=== PATIENT | female | born 1990 | race African-American/Black ===

== ENCOUNTER 2024-11-29 00:42 | Emergency (ER) | payer OTHER ==
[2024-11-29] MEDS ORDERED: HYDROMORPHONE HCL 1 MG/ML INJ ONE ×3 (01:07→03:00)
[2024-11-29] MEDS ORDERED: NA CHLORIDE 0.9% 1,000 ML ONE (01:08)
[2024-11-29] MEDS ORDERED: KETOROLAC 30 MG/ML INJ ONE (01:08)
[2024-11-29 01:49] LABS: Absolute Basophils 0.2 K/uL (0-0.5); Absolute Eosinophils 1.2 K/uL (0-0.5); Absolute Lymphocytes (CBC) 3.8 K/uL (0.7-4.9); Absolute Monocytes 2.4 K/uL (0.1-1.3); Absolute Neutrophil 12.4 K/uL (1.8-8.0); Basophils % 1.1 % (0-1.3); Eosinophils % 5.9 % (0-4.4); Hematocrit 19.7 % (36.0-45.0); Hemoglobin 6.8 g/dL (12.0-15.0); Lymphocytes % 18.9 % (15.3-44.8); MCH 34.1 pg (27.0-35.0); MCHC 34.6 g/dL (32.0-36.0); MCV 98.5 fL (80-100); MPV 9.4 fL (7.6-11.3); Monocytes % 12.1 % (3.3-12.3); Nucleated Red Blood Cells % 19.9 % (0-0); Percent Reticulocyte Count 16.11 % (0.4-2.05); Platelets 268 thou/uL (152-406); Red Cell Distribution Width 27.3 % (12.1-15.2)
[2024-11-29] MEDS ORDERED: DIPHENHYDRAMINE 25 MG TAB/CAP ONE (01:50)
[2024-11-29 01:53] LABS: Albumin 4.6 g/dL (3.4-5.0); Albumin/Globulin Ratio 1.3 (1.1-1.8); Anion Gap 8.5 mEq/L (5.0-15.0); Bilirubin Total 12.4 mg/dL (0.2-1.0); Globulin 3.6 g/dL (2.3-3.5); Potassium 4.5 mEq/L (3.5-5.1); Protein, Total 8.2 g/dL (6.4-8.2)
[2024-11-29] MEDS ORDERED: CEFTRIAXONE 1000 MG/VIAL ONE (03:00)
[2024-11-29 03:21] LABS: Band Neutrophils 1 % (0-1); Differential Total Cells Count 100; Eosinophils 4 % (0-3); Lymphocytes 21 % (15-42); Monocytes 8 % (0-10); Segmented Neutrophils 66 % (40-80)
[2024-11-29 03:22] LABS: Nucleated Red Blood Cells 29 /100WBC
[2024-11-29 03:25] LABS: Anisocytosis 3+; Blood Morphology Comment NOTED (NOT SEEN); Platelet Estimate ADEQ
--- NOTE | 2024-11-29 03:25 | EDPHYS ---
Physician Documentation [facility] Name: Adriane Sutherland Age: 34 yrs Sex: Female : 1990 Arrival Date: 11/29/2024 Time: 00:42 Bed 2 Private MD: ED Physician Serge Calle HPI: 11/29 01:04 This 34 yrs old Black Female presents to ER via Wheelchair with complaints of SICKLE rt PAIN. 05:20 Patient with history of sickle cell SS disease presents to the ED with a generalized rt body pain consistent with vaso-occlusive crisis. Patient reports that her jaundice is chronic for her. States that her baseline hemoglobin is at about 7 and her bilirubin is baseline is about 12. Denies fever, chills, difficulty breathing. Denies other acute complaints, symptoms are moderate in severity, no other aggravating alleviating factors.. Historical: - Allergies: 02:32 Compazine; br2 - PMHx: 02:17 SICKLE CELL; jj7 - PSHx: 02:17 HEART SX; jj7 - Immunization history:: Adult Immunizations not up to date. - Infectious Disease History:: Denies. - Family history:: not pertinent. - Social history:: Smoking status: Patient denies any tobacco usage or history of. Patient/guardian denies using alcohol, street drugs, IV drugs. ROS: 05:20 Cardiovascular: Negative for chest pain, palpitations, and edema, Respiratory: Negative rt for shortness of breath, cough, wheezing, and pleuritic chest pain, Abdomen/GI: Negative for abdominal pain, nausea, vomiting, diarrhea, and constipation, MS/Extremity: Negative for injury and deformity, Skin: Negative for injury, rash, and discoloration, 05:20 Constitutional: Positive for body aches, Negative for fever, Exam: 05:20 Constitutional: This is a well developed, well nourished patient who is awake, alert, rt and in no acute distress. Chest/axilla: Normal chest wall appearance and motion. Nontender with no deformity. No lesions are appreciated. Cardiovascular: Regular rate and rhythm with a normal S1 and S2. No gallops, murmurs, or rubs. Normal PMI, no JVD. No pulse deficits. Respiratory: Lungs have equal breath sounds bilaterally, clear to auscultation and percussion. No rales, rhonchi or wheezes noted. No increased work of breathing, no retractions or nasal flaring. Abdomen/GI: Soft, non-tender, with normal bowel sounds. No distension or tympany. No guarding or rebound. No evidence of tenderness throughout. Skin: Warm, dry with normal turgor. Normal color with no rashes, no lesions, and no evidence of cellulitis. Neuro: Awake and alert, GCS 15, oriented to person, place, time, and situation. Cranial nerves II-XII grossly intact. Motor strength 5/5 in all extremities. Sensory grossly intact. Cerebellar exam normal. Normal gait. 05:20 Eyes: Jaundice noted. Vital Signs: 01:01 BP 164 / 88; Pulse 98; Resp 18; Temp 98.1; Pulse Ox 92% on R/A; Weight 65.77 kg; Height br2 5 ft. 6 in. ; Pain 10/10; 02:12 BP 127 / 66; Pulse 78; Resp 16; Pulse Ox 100% ; jj7 02:45 BP 124 / 85; Pulse 79; Resp 17 S; Pulse Ox 98% on R/A; ha1 03:30 BP 130 / 56; Pulse 76; Resp 17 S; Temp 97.2; Pulse Ox 99% on R/A; ha1 01:01 Body Mass Index 23.40 (65.77 kg, 167.64 cm) br2 01:01 Pain Scale: Adult br2 MDM: 00:57 Medical Screening Exam initiated rt 05:20 Differential Diagnosis Vaso-occlusive crisis, sepsis. Data reviewed: vital signs, rt nurses notes, lab test result(s), radiologic studies. Consideration of Admission/Observation Escalation of care including admission/observation considered. Given leukocytosis, unclear infectious etiology, I discussed admission with the patient. 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 States that her pain is well-controlled with pain medications. 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 The patient has decision-making capacity. She was instructed to return to the ER at any time if she develops worsening symptoms or if she changes her mind.. I considered the following discharge prescriptions or medication management in the emergency department Medications were administered in the Emergency Department. See MAR. Independent interpretation of the following test(s) in the Emergency Department X-Ray: My interpretation is No infiltrate seen on interpretation of x-ray images. Care significantly affected by the following chronic conditions: Sickle cell disease. Counseling: I had a detailed discussion with the patient and/or guardian regarding the historical points, exam findings, and any diagnostic results supporting the discharge/admit diagnosis, lab results, radiology results, the need for outpatient follow up, to return to the emergency department if symptoms worsen or persist or if there are any questions or concerns that arise at home. Response to treatment: the patient's symptoms have markedly improved after treatment. 11/29 00:57 Order name: CBC with Diff; Complete Time: 03:34 rt 11/29 00:57 Order name: CMP; Complete Time: 02:04 rt 11/29 00:57 Order name: Retic Count; Complete Time: 03:34 rt 11/29 00:57 Order name: LDH; Complete Time: 02:04 rt 11/29 02:24 Order name: Blood Culture Adult (2) rt 11/29 03:24 Order name: Manual Differential; Complete Time: 03:34 EDMS 11/29 00:57 Order name: Chest Single View XRAY rt Administered Medications: 01:10 Drug: NS 0.9% IV 1000 ml IV at 1000 ml once; to be given as a bolus over 60 minutes ha1 Route: IV; Rate: 1000 ml; Site: right antecubital; 03:35 Follow up: IV Status: Completed infusion jj7 01:12 Drug: Ketorolac IVP 30 mg IVP once Route: IVP; Site: right antecubital; ha1 02:00 Follow up: Response: Pain is decreased jj7 01:15 Drug: HYDROmorphone IVP 1 mg IVP once Route: IVP; Site: right antecubital; ha1 01:59 Follow up: Response: Pain is decreased jj7 01:52 Drug: diphenhydrAMINE PO 50 mg PO once Route: PO; jj7 02:00 Follow up: Response: No adverse reaction ha1 03:43 Follow up: Response: No adverse reaction; Marked relief of symptoms jj7 02:12 Drug: HYDROmorphone IVP 1 mg IVP once Route: IVP; Site: right antecubital; jj7 02:30 Follow up: Response: No adverse reaction; Marked relief of symptoms; Pain is decreased; ha1 RASS: Alert and Calm (0) 03:10 Drug: Rocephin IV 2 grams IV at calculated rate once; Given slow IV push per pharmarcy jj7 instructions Route: IV; Rate: calculated rate; Site: right antecubital; 03:15 Follow up: IV Status: Completed infusion jj7 03:10 Drug: HYDROmorphone IVP 1 mg IVP once Route: IVP; Site: right antecubital; jj7 03:43 Follow up: Response: No adverse reaction; Marked relief of symptoms; Pain is decreased; ha1 RASS: Alert and Calm (0) Disposition Summary: 11/29/24 03:25 Discharge Ordered Notes: Location: Home rt Problem: an acute exacerbation rt Symptoms: have improved rt Condition: Fair rt Diagnosis - Other sickle-cell disorders with crisis, unspecified rt Followup: rt - With: Private Physician - When: 2 - 3 days - Reason: Followup: rt - With: Emergency Department - When: As needed - Reason: Worsening of condition Discharge Instructions: - Discharge Summary Sheet rt - Sickle Cell Anemia, Adult rt Forms: - Medication Reconciliation Form rt - Antibiotic Education rt - Prescription Opioid Use rt - Patient Portal Instructions rt - Leadership Thank You Letter rt Prescriptions: - cefdinir 300 mg Oral capsule - take 1 capsule ORAL route 2 times per day; 14 capsule; Refills: 0, Product rt Selection Permitted Signatures: Dispatcher [employer] Haily Maria RN RN ha1 Trisha Geronimo RN RN jj7 Serge Calle MD MD rt Cesilia Talbert RN RN br2 Corrections: (The following items were deleted from the chart) 02:32 02:17 Allergies: No Known Allergies; jj7 br2
--- NOTE | 2024-11-29 03:25 | ER ---
Nurse's Notes [facility] Name: Adriane Sutherland Age: 34 yrs Sex: Female : 1990 Arrival Date: 11/29/2024 Time: 00:42 Bed 2 Private MD: Diagnosis: Other sickle-cell disorders with crisis, unspecified Presentation: 11/29 01:01 Chief complaint: Patient states: PT HAS SICKLE CELL AND STATES SHE BEGAN HAVING PAIN br2 ALL OVER APPROX 2 HRS PRIOR TO ARRIVAL. C/O CP AND SOB. Coronavirus screen: Client denies travel out of the [place] in the last 14 days. Ebola Screen: Patient denies exposure to infectious person. Initial Sepsis Screen: Does the patient meet any 2 criteria? No. Patient's initial sepsis screen is negative. Does the patient have a suspected source of infection? No. Patient's initial sepsis screen is negative. Risk Assessment: Do you want to hurt yourself or someone else? Patient reports no desire to harm self or others. Onset of symptoms was November 28, 2024 at 23:00. 01:01 Method Of Arrival: Wheelchair br2 01:01 Acuity: ISA 3 br2 Historical: - Allergies: 02:32 Compazine; br2 - PMHx: 02:17 SICKLE CELL; jj7 - PSHx: 02:17 HEART SX; jj7 - Immunization history:: Adult Immunizations not up to date. - Infectious Disease History:: Denies. - Family history:: not pertinent. - Social history:: Smoking status: Patient denies any tobacco usage or history of. Patient/guardian denies using alcohol, street drugs, IV drugs. Screenin:05 [facility] ED Fall Risk Assessment (Adult) History of falling in the last 3 months, jj7 including since admission No falls in past 3 months (0 pts) Confusion or Disorientation No (0 pts) Intoxicated or Sedated No (0 pts) Impaired Gait No (0 pts) Mobility Assist Device Used No (0 pt) Altered Elimination No (0 pt) Score/Fall Risk Level 0 - 2 = Low Risk Oriented to surroundings, Maintained a safe environment, Educated pt \T\ family on fall prevention, incl call for assistance when getting out of bed, Assessed \T\ reinforced patient's understanding of fall precautions. Abuse screen: Denies threats or abuse. Nutritional screening: No deficits noted. Tuberculosis screening: No symptoms or risk factors identified. Assessment: 01:01 General: Appears in no apparent distress. uncomfortable, Behavior is calm, cooperative, jj7 appropriate for age. Pain: Complains of pain in ALL OVER BODY Pain currently is 10 out of 10 on a pain scale. Musculoskeletal: Reports GENERALIZED PAIN ALL OVER. 02:20 Reassessment: Patient and/or family updated on plan of care and expected duration. Pain ha1 level reassessed. Patient is alert, oriented x 3, equal unlabored respirations, skin warm/dry/pink. 03:39 Reassessment: Patient and/or family updated on plan of care and expected duration. Pain ha1 level reassessed. Patient is alert, oriented x 3, equal unlabored respirations, skin warm/dry/pink. PAIN 4/10 Patient states feeling better. Patient states symptoms have improved. Vital Signs: 01:01 BP 164 / 88; Pulse 98; Resp 18; Temp 98.1; Pulse Ox 92% on R/A; Weight 65.77 kg; Height br2 5 ft. 6 in. ; Pain 10/10; 02:12 BP 127 / 66; Pulse 78; Resp 16; Pulse Ox 100% ; jj7 02:45 BP 124 / 85; Pulse 79; Resp 17 S; Pulse Ox 98% on R/A; ha1 03:30 BP 130 / 56; Pulse 76; Resp 17 S; Temp 97.2; Pulse Ox 99% on R/A; ha1 01:01 Body Mass Index 23.40 (65.77 kg, 167.64 cm) br2 01:01 Pain Scale: Adult br2 ED Course: 11/28 00:57 Arm band placed on right wrist. ha1 11/29 00:52 Patient arrived in ED. gm2 00:56 Serge Calle MD is Attending Physician. rt 01:03 Triage completed. br2 01:05 Patient has correct armband on for positive identification. Bed in low position. Call jj7 light in reach. Side rails up X 1. Adult w/ patient. Provided Education on: USE OF CALL STAPLETON. Warm blanket given. 01:05 No provider procedures requiring assistance completed. Inserted saline lock: 20 gauge jj7 in right antecubital area, using aseptic technique. Blood collected. Flushed with 10 mL NS. 01:39 Chest Single View XRAY In Process Unspecified. EDMS 01:52 Trisha Geronimo, COLTON is Primary Nurse. j7 02:12 Diet: Patient given snack. Patient given juice. Tolerated well. jj7 02:43 First set of blood cultures drawn by me. sa1 02:55 Second set of blood cultures drawn by me. jj7 03:40 IV discontinued, intact, bleeding controlled, No redness/swelling at site. Pressure ha1 dressing applied. Administered Medications: 01:10 Drug: NS 0.9% IV 1000 ml IV at 1000 ml once; to be given as a bolus over 60 minutes ha1 Route: IV; Rate: 1000 ml; Site: right antecubital; 03:35 Follow up: IV Status: Completed infusion jj7 01:12 Drug: Ketorolac IVP 30 mg IVP once Route: IVP; Site: right antecubital; ha1 02:00 Follow up: Response: Pain is decreased jj7 01:15 Drug: HYDROmorphone IVP 1 mg IVP once Route: IVP; Site: right antecubital; ha1 01:59 Follow up: Response: Pain is decreased jj7 01:52 Drug: diphenhydrAMINE PO 50 mg PO once Route: PO; jj7 02:00 Follow up: Response: No adverse reaction ha1 03:43 Follow up: Response: No adverse reaction; Marked relief of symptoms jj7 02:12 Drug: HYDROmorphone IVP 1 mg IVP once Route: IVP; Site: right antecubital; jj7 02:30 Follow up: Response: No adverse reaction; Marked relief of symptoms; Pain is decreased; ha1 RASS: Alert and Calm (0) 03:10 Drug: Rocephin IV 2 grams IV at calculated rate once; Given slow IV push per pharmarcy jj7 instructions Route: IV; Rate: calculated rate; Site: right antecubital; 03:15 Follow up: IV Status: Completed infusion j7 03:10 Drug: HYDROmorphone IVP 1 mg IVP once Route: IVP; Site: right antecubital; jj7 03:43 Follow up: Response: No adverse reaction; Marked relief of symptoms; Pain is decreased; ha1 RASS: Alert and Calm (0) Medication: 02:17 VIS not applicable for this client. jj7 Outcome: 03:25 Discharge ordered by . rt 03:39 Discharged to home via wheelchair, with family, ha1 03:39 Condition: stable 03:39 Discharge instructions given to patient, Instructed on discharge instructions, follow up and referral plans. medication usage, Demonstrated understanding of instructions, follow-up care, medications, Prescriptions given X 1, 03:44 Patient left the ED. ha1 Signatures: Dispatcher [employer] EDMS Haily Dalton RN RN ha1 Trisha Geronimo RN RN jj7 Serge Calle MD MD rt Ivelisse Ravi 2 Sultan Moshe sa1 Cesilia Talbert RN RN br2 Corrections: (The following items were deleted from the chart) 01:15 00:12 Ketorolac IVP 30 mg IVP in right antecubital ha1 ha1 02:32 02:17 Allergies: No Known Allergies; jj7 br2 03:22 03:21 BP 120 / 92; Pulse 90bpm; Resp 17bpm; Pulse Ox 99%; jj7 jj7 03:44 03:39 Discharged to home ambulatory, with family, ha1 ha1
[2024-11-29 03:26] LABS: Hypochromasia 1+; Poikilocytosis 2+; Polychromasia 2+
[2024-11-29 04:25] VITALS: TEMP 98.1
[2024-11-29 04:31] VITALS: BP 127/66; O2SAT 100
--- NOTE | 2024-11-29 04:54 | RAD REPORT ---
EXAM: XR Chest, 1 View CLINICAL HISTORY: The patient is 34 years old and is Female; chest pain, sickle cell TECHNIQUE: Frontal view of the chest. COMPARISON: No relevant prior studies available. FINDINGS: Lungs: Unremarkable. No consolidation. Pleural space: Unremarkable. No pneumothorax. Heart: Unremarkable. Mediastinum: Unremarkable. Normal mediastinal contour. Bones/joints: No acute findings. Tubes, lines and devices: Right Port-A-Cath with tip in the SVC. IMPRESSION: No acute findings in the chest. Electronically signed by: Hamilton Lin MD 11/29/2024 03:22 AM [facility] 8 Due to temporary technical issues with the PACS/myEDmatch reporting system, reports are being luigi d by the in-house radiologist without review as a courtesy to ensure prompt reporting the interpreting radiologist is fully responsible for the content of the report. Transcribed Date/Time: 11/29/2024 4:54 AM
== END 2024-11-29 03:44 | disposition home or self-care (01) ==
LOC: ER 00:42
DX: D57.819 Other sickle-cell disorders with crisis, unspecified (principal)
CPT/HCPCS: 96361; 87040 ×2; 85025; 36415; 83615; 85044; 80053; 71045; 96375; 96374; 99284; J1171 ×3; J7030; J0696

== ENCOUNTER 2025-03-08 15:27 | Emergency (ER) | payer OTHER ==
[2025-03-08] MEDS ORDERED: ONDANSETRON 4 MG/2 ML VIAL ONE (15:42)
[2025-03-08] MEDS ORDERED: HYDROMORPHONE HCL 1 MG/ML INJ ONE ×3 (15:42→17:21)
[2025-03-08] MEDS ORDERED: NA CHLORIDE 0.9% 1,000 ML ONE (15:42)
[2025-03-08] MEDS ORDERED: DIPHENHYDRAMINE 50 MG/ML VIAL ONE (16:16)
[2025-03-08 16:19] LABS: Absolute Basophils 0.1 K/uL (0-0.5); Absolute Eosinophils 1.5 K/uL (0-0.5); Absolute Lymphocytes (CBC) 1.4 K/uL (0.7-4.9); Absolute Monocytes 3.3 K/uL (0.1-1.3); Absolute Neutrophil 23.1 K/uL (1.8-8.0); Basophils % 0.3 % (0-1.3); Eosinophils % 5.3 % (0-4.4); Hematocrit 21.6 % (36.0-45.0); Hemoglobin 7.6 g/dL (12.0-15.0); Lymphocytes % 4.7 % (15.3-44.8); MCH 33.1 pg (27.0-35.0); MCHC 35.1 g/dL (32.0-36.0); MCV 94.4 fL (80-100); MPV 9.2 fL (7.6-11.3); Monocytes % 11.1 % (3.3-12.3); Neutrophils % 78.6 % (41.7-73.7); Percent Reticulocyte Count 16.08 % (0.4-2.05); Platelets 304 thou/uL (152-406); RBC Red Blood Cell Count 2.28 M/uL (3.86-4.86)
[2025-03-08 16:37] LABS: Albumin 4.3 g/dL (3.4-5.0); Albumin/Globulin Ratio 1.2 (1.1-1.8); Anion Gap 13.2 mEq/L (5.0-15.0); Bilirubin Direct 0.7 mg/dL (0-0.2); Bilirubin Indirect, Calculated 10.4 mg/dL (0.2-0.8); Bilirubin Total 11.1 mg/dL (0.2-1.0); Globulin 3.7 g/dL (2.3-3.5); Potassium 4.2 mEq/L (3.5-5.1); Troponin High Sensitivity 3.2 pg/mL (<58.9)
--- NOTE | 2025-03-08 16:38 | RAD REPORT ---
EXAM: Chest Single View HISTORY: 34 years Female sickle cell disease;Chest pain COMPARISON: 11/29/2024 FINDINGS: LUNGS/PLEURA: The lungs are clear. No pleural effusions or pneumothorax. No pulmonary edema. CARDIAC/MEDIASTINUM: The cardiac silhouette is within normal limits. UPPER ABDOMEN: No significant abnormality. BONES: No acute abnormality. LINES/TUBES/OTHER: Right IJ approach dual-lumen Port-A-Cath. IMPRESSION: No evidence of acute cardiopulmonary disease.
[2025-03-08 16:58] LABS: Platelet Estimate ADEQ
[2025-03-08 16:59] LABS: Anisocytosis 3+; Hypochromasia 3+
[2025-03-08 17:06] LABS: Blood Morphology Comment NOTED (NOT SEEN)
--- NOTE | 2025-03-08 17:18 | ER ---
Nurse's Notes [facility] Name: Adriane Sutherland Age: 34 yrs Sex: Female : 1990 Arrival Date: 03/08/2025 Time: 15:27 Bed 18 Private MD: Diagnosis: Sickle cell crisis, sickle cell anemia, AGAINST MEDICAL ADVICE informed discharge Presentation: 03/08 15:46 Chief complaint: Patient states: Sickle cell crisis onset this morning. Pt reports pain cm10 to her left leg, back and mouth. Pt also reports vomiting X5. 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 Last sickle cell crisis last week. Coronavirus screen: Client denies travel out of the [place] in the last 14 days. Ebola Screen: Patient denies travel to an Ebola-affected area in the 21 days before illness onset. Initial Sepsis Screen: Does the patient meet any 2 criteria? HR > 90 bpm. Does the patient have a suspected source of infection? No. Patient's initial sepsis screen is negative. Risk Assessment: Do you want to hurt yourself or someone else? Patient reports no desire to harm self or others. Onset of symptoms was March 08, 2025. 15:46 Method Of Arrival: Wheelchair cm10 15:46 Acuity: ISA 3 cm10 Triage Assessment: 15:48 General: Appears in no apparent distress. uncomfortable, Behavior is calm, cooperative. cm10 Neuro: No deficits noted. Level of Consciousness is awake, alert, obeys commands, Oriented to person, place, time, situation, Appropriate for age. Respiratory: No deficits noted. Airway is patent Respiratory effort is even, unlabored, Respiratory pattern is regular, symmetrical. 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 - Infectious Disease History:: Denies. - Social history:: Smoking status: Patient denies any tobacco usage or history of. Screenin:50 [facility] ED Fall Risk Assessment (Adult) History of falling in the last 3 months, mb9 including since admission No falls in past 3 months (0 pts) Confusion or Disorientation No (0 pts) Intoxicated or Sedated No (0 pts) Impaired Gait No (0 pts) Mobility Assist Device Used No (0 pt) Altered Elimination No (0 pt) Score/Fall Risk Level 0 - 2 = Low Risk Oriented to surroundings, Maintained a safe environment, Educated pt \T\ family on fall prevention, incl call for assistance when getting out of bed. Abuse screen: Denies threats or abuse. Nutritional screening: No deficits noted. Tuberculosis screening: No symptoms or risk factors identified. Assessment: 15:49 Pain: Complains of pain in back, left leg and mouth Pain currently is 10 out of 10 on a mb9 pain scale. Pain began suddenly. Neuro: Rosales Agitation-Sedation Scale (RASS): 0 - Alert and Calm Level of Consciousness is awake, alert, obeys commands, Oriented to person, place, time, situation, Appropriate for age. Cardiovascular: Heart tones S1 S2 present. Respiratory: Airway is patent Respiratory effort is even, unlabored, Respiratory pattern is regular, symmetrical, Breath sounds are clear bilaterally. GI: Abdomen is flat, non-distended, Bowel sounds present X 4 quads. Abd is soft and non tender X 4 quads. Reports nausea. : No signs and/or symptoms were reported regarding the genitourinary system. EENT: No signs and/or symptoms were reported regarding the EENT system. Derm: Skin is pink, warm \T\ dry. Musculoskeletal: Range of motion: intact in all extremities. 17:14 Reassessment: Dr. Patterson at bedside speaking to pt. Pt declined admission and states she mb9 wants to go back home to [place] to be admitted. 17:32 Reassessment: D/C pending medication administration wait time. mb9 17:59 Reassessment: Patient and/or family updated on plan of care and expected duration. Pain mb9 level reassessed. Patient is alert, oriented x 3, equal unlabored respirations, skin warm/dry/pink. Patient states feeling better. Patient states symptoms have improved. Vital Signs: 15:46 BP 131 / 74; Pulse 105; Resp 18; Pulse Ox 94% on R/A; Weight 62.6 kg; Height 5 ft. 6 cm10 in. ; Pain 10/10; 16:22 Temp 98.7(O); mb9 16:56 BP 135 / 83; Pulse 75; Resp 18; Pulse Ox 100% on R/A; mb9 17:59 BP 122 / 74; Pulse 71; Resp 15; Pulse Ox 100% on R/A; mb9 15:46 Body Mass Index 22.27 (62.60 kg, 167.64 cm) cm10 15:46 Pain Scale: Adult cm10 ED Course: 15:31 Patient arrived in ED. sj2 15:31 Heather Patterson MD is Attending Physician. sp3 15:35 Rosa Isela Cowan, COLTON is Primary Nurse. mb9 15:48 Triage completed. cm10 15:48 Arm band placed on right wrist. Patient placed in an exam room, on a stretcher, on cm10 oxygen, on pulse oximetry. 15:50 EKG done, by ED staff, reviewed by Heather Patterson MD. mb9 15:51 Placed in gown. Bed in low position. Call light in reach. Side rails up X 1. Provided mb9 Education on: press call light if needing anything. Client placed on continuous cardiac and pulse oximetry monitoring. NIBP monitoring applied. classroom monitor on. 16:11 Initial lab(s) drawn, by me, sent to lab. Accessed peripheral vein via ultrasound, cm10 utilizing dynamic ultrasound technique using per hospital protocol. Clean \T\ dry. Dressing intact. Good blood return. Flushes easily. 20G LFA. 16:32 XRAY Chest (1 view) In Process Unspecified. EDMS 17:59 No provider procedures requiring assistance completed. IV discontinued, intact, mb9 bleeding controlled, No redness/swelling at site. Pressure dressing applied. Administered Medications: 16:10 Drug: Ondansetron IVP 4 mg IVP once; over 2 minutes Route: IVP; Site: left forearm; mb9 17:07 Follow up: Response: No adverse reaction mb9 16:12 Drug: HYDROmorphone IVP 1 mg IVP once Route: IVP; Site: left forearm; mb9 17:07 Follow up: Response: No adverse reaction mb9 16:13 Drug: NS 0.9% IV 1000 ml IV at 1 bolus Per protocol; to be given as a bolus over 60 mb9 minutes Route: IV; Rate: 1 bolus; Site: left forearm; 17:15 Follow up: Response: No adverse reaction; IV Status: Completed infusion mb9 16:20 Drug: diphenhydrAMINE IVP 12.5 mg IVP once Route: IVP; Site: left forearm; mb9 17:07 Follow up: Response: No adverse reaction mb9 16:45 Drug: HYDROmorphone IVP 1 mg IVP once Route: IVP; Site: left forearm; mb9 17:07 Follow up: Response: No adverse reaction mb9 17:27 Drug: HYDROmorphone IVP 1 mg IVP once Route: IVP; Site: left forearm; mb9 Medication: 15:51 VIS not applicable for this client. mb9 Outcome: 17:17 Discharge ordered by . [email or web address] 17:59 Discharged to home via wheelchair, with family, mb9 17:59 Condition: stable 17:59 Discharge instructions given to patient, family, Instructed on discharge instructions, follow up and referral plans. Demonstrated understanding of instructions, follow-up care, 18:00 Patient left the ED. mb9 Signatures: Dispatcher [employer] EDHeather Mcgee MD MD sp3 Rosa Isela Cowan RN RN mb9 Kayla Mcdermott RN RN cm10 Jay Jay Khan2
--- NOTE | 2025-03-08 17:18 | EDPHYS ---
Physician Documentation [facility] Name: Adriane Sutherland Age: 34 yrs Sex: Female : 1990 Arrival Date: 03/08/2025 Time: 15:27 Bed 18 Private MD: ED Physician Heather Patterson HPI: 03/08 15:55 This 34 yrs old Black Female presents to ER via Wheelchair with complaints of Sickle sp3 Cell Crisis. 15:55 34-year-old female with history of sickle cell disease with frequent crises with prior sp3 needs of hospitalization, blood transfusion and oxygen treatment, pulmonary hypertension, now presents to the ED with chief complaint chest pain and sickle cell crisis. Patient is from [place] and this is her second visit to this area. She denies any significant shortness of breath, does endorse some mild nausea and vomiting. She denies any headache, diarrhea, abdominal pain, bleeding anywhere else melena, or any other signs or symptoms on ROS at this time. She is currently on her menses.. 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 - Infectious Disease History:: Denies. - Social history:: Smoking status: Patient denies any tobacco usage or history of. ROS: 15:55 Constitutional: Negative for fever, chills, and weight loss, Eyes: Negative for injury, sp3 pain, redness, and discharge, ENT: Negative for injury, pain, and discharge, Neck: Negative for injury, pain, and swelling, Respiratory: Negative for shortness of breath, cough, wheezing, and pleuritic chest pain, Abdomen/GI: Negative for abdominal pain, nausea, vomiting, diarrhea, and constipation, Back: Negative for injury and pain, : Negative for injury, bleeding, discharge, and swelling, MS/Extremity: Negative for injury and deformity, Skin: Negative for injury, rash, and discoloration, Neuro: Negative for headache, weakness, numbness, tingling, and seizure, Allergy/Immunology: Negative for hives, rash, and allergies, Endocrine: Negative for neck swelling, polydipsia, polyuria, polyphagia, and marked weight changes, Exam: 15:55 Constitutional: This is a well developed, well nourished patient who is awake, alert, sp3 and in no acute distress. Head/Face: Normocephalic, atraumatic. Eyes: Pupils equal round and reactive to light, extra-ocular motions intact. Lids and lashes normal. Conjunctiva and sclera are non-icteric and not injected. Cornea within normal limits. Periorbital areas with no swelling, redness, or edema. ENT: Nares patent. No nasal discharge, no septal abnormalities noted. External auditory canals are clear. Oropharynx with no redness, swelling, or masses, exudates, or evidence of obstruction, uvula midline. Mucous membranes moist. Neck: Trachea midline, no thyromegaly or masses palpated, and no cervical lymphadenopathy. Supple, full range of motion without nuchal rigidity, or vertebral point tenderness. No Meningismus. Chest/axilla: Normal chest wall appearance and motion. Nontender with no deformity. No lesions are appreciated. Cardiovascular: Regular rate and rhythm with a normal S1 and S2. No gallops, murmurs, or rubs. Normal PMI, no JVD. No pulse deficits. Respiratory: Lungs have equal breath sounds bilaterally, clear to auscultation and percussion. No rales, rhonchi or wheezes noted. No increased work of breathing, no retractions or nasal flaring. Abdomen/GI: Soft, non-tender, with normal bowel sounds. No distension or tympany. No guarding or rebound. No evidence of tenderness throughout. Back: No spinal tenderness. No costovertebral tenderness. Full range of motion. Skin: Warm, dry with normal turgor. Normal color with no rashes, no lesions, and no evidence of cellulitis. MS/ Extremity: Pulses equal, no cyanosis. Neurovascular intact. Full, normal range of motion. Neuro: Awake and alert, GCS 15, oriented to person, place, time, and situation. Cranial nerves II-XII grossly intact. Motor strength 5/5 in all extremities. Sensory grossly intact. Cerebellar exam normal. Normal gait. Psych: Awake, alert, with orientation to person, place and time. Behavior, mood, and affect are within normal limits. 15:55 ECG was reviewed by the Attending Physician. EKG demonstrates normal sinus rhythm at 98 bpm with normal intervals, normal QRS, normal axis, normal ST/T-segment's without evidence of acute ischemia. Vital Signs: 15:46 BP 131 / 74; Pulse 105; Resp 18; Pulse Ox 94% on R/A; Weight 62.6 kg; Height 5 ft. 6 cm10 in. ; Pain 10/10; 16:22 Temp 98.7(O); mb9 16:56 BP 135 / 83; Pulse 75; Resp 18; Pulse Ox 100% on R/A; mb9 17:59 BP 122 / 74; Pulse 71; Resp 15; Pulse Ox 100% on R/A; mb9 15:46 Body Mass Index 22.27 (62.60 kg, 167.64 cm) cm10 15:46 Pain Scale: Adult cm10 MDM: 15:37 Medical Screening Exam initiated sp3 15:56 Data reviewed: vital signs, nurses notes, lab test result(s), EKG, radiologic studies. sp3 ED course: 34-year-old female with history of sickle cell disease now with chest pain. Differential diagnosis includes acute chest syndrome, sickle cell disease pain, sickle cell crisis, bronchitis, pneumonia, dehydration, among others. I am not highly suspicious of acute coronary syndrome, PE, TAD, sepsis, shock or any other critical process at this time. Workup will include chest x-ray, EKG and, general labs including reticulocyte count. IV hydration and pain control also initiated. Disposition pending workup and patient course.. 17:16 ED course: Patient with 29,000 WBC count, at 7.6 hemoglobin (normal for her is sp3 6.5-7.5), and reticulocyte count of 13. I have offered patient transfusion and admission for her symptoms however patient elects to be discharged to be seen and evaluated back in [place] near her family. I offered her CT scan of the abdomen pelvis, continued pain medication, continued IV fluids, and admission. Patient will be discharged as an AMA informed discharge.. 03/08 15:37 Order name: Basic Metabolic Panel; Complete Time: 16:48 sp3 03/08 15:37 Order name: CBC with Diff 3 03/08 15:37 Order name: LFT's; Complete Time: 16:48 sp3 03/08 15:37 Order name: Magnesium; Complete Time: 16:48 sp3 03/08 15:37 Order name: NT PRO-BNP; Complete Time: 16:48 sp3 03/08 15:37 Order name: Troponin HS; Complete Time: 16:48 sp3 03/08 15:37 Order name: Retic Count sp3 03/08 15:37 Order name: XRAY Chest (1 view); Complete Time: 16:48 sp3 03/08 15:37 Order name: Cardiac monitoring; Complete Time: 15:49 sp3 03/08 15:37 Order name: EKG - Nurse/Tech; Complete Time: 15:49 sp3 03/08 15:37 Order name: IV Saline Lock; Complete Time: 16:14 sp3 03/08 15:37 Order name: Labs collected and sent; Complete Time: 16:14 sp3 03/08 15:37 Order name: O2 Per Protocol; Complete Time: 15:49 sp3 03/08 15:37 Order name: O2 Sat Monitoring; Complete Time: 15:49 sp3 Administered Medications: 16:10 Drug: Ondansetron IVP 4 mg IVP once; over 2 minutes Route: IVP; Site: left forearm; mb9 17:07 Follow up: Response: No adverse reaction mb9 16:12 Drug: HYDROmorphone IVP 1 mg IVP once Route: IVP; Site: left forearm; mb9 17:07 Follow up: Response: No adverse reaction mb9 16:13 Drug: NS 0.9% IV 1000 ml IV at 1 bolus Per protocol; to be given as a bolus over 60 mb9 minutes Route: IV; Rate: 1 bolus; Site: left forearm; 17:15 Follow up: Response: No adverse reaction; IV Status: Completed infusion mb9 16:20 Drug: diphenhydrAMINE IVP 12.5 mg IVP once Route: IVP; Site: left forearm; mb9 17:07 Follow up: Response: No adverse reaction mb9 16:45 Drug: HYDROmorphone IVP 1 mg IVP once Route: IVP; Site: left forearm; mb9 17:07 Follow up: Response: No adverse reaction mb9 17:27 Drug: HYDROmorphone IVP 1 mg IVP once Route: IVP; Site: left forearm; mb9 Disposition Summary: 05/18/25 17:17 Discharge Ordered Notes: Location: Home sp3 Condition: Stable sp3 Diagnosis - Sickle cell crisis, sickle cell anemia, AGAINST MEDICAL ADVICE informed discharge sp3 Followup: sp3 - With: Private Physician - When: Upon discharge from the Emergency Department - Reason: Continuance of care Discharge Instructions: - Discharge Summary Sheet sp3 - Sickle Cell Anemia, Adult sp3 Forms: - Medication Reconciliation Form sp3 - Antibiotic Education sp3 - Prescription Opioid Use sp3 - Patient Portal Instructions sp3 - Leadership Thank You Letter sp3 Signatures: Dispatcher [employer] EDMS Heather Patterson MD MD sp3 Rosa Isela Cowan RN RN mb9 Kayla Mcdermott RN RN cm10 Corrections: (The following items were deleted from the chart) 15:38 15:38 BASIC METABOLIC PANEL+C.LAB.BRZ ordered. EDMS EDMS 15:38 15:38 CBC+H.LAB.BRZ ordered. EDMS EDMS 15:38 15:38 HEPATIC FUNCTION+C.LAB.BRZ ordered. EDMS EDMS 15:38 15:38 MAGNESIUM+C.LAB.BRZ ordered. EDMS EDMS 15:38 15:38 PROBNP+C.LAB.BRZ ordered. EDMS EDMS 15:38 15:38 Troponin High Sensitivity+C.LAB.BRZ ordered. EDMS EDMS 15:38 15:38 RETIC COUNT+H.LAB.BRZ ordered. EDMS EDMS 15:38 15:38 Chest Single View+RAD.RAD.BRZ ordered. EDMS EDMS
[2025-03-08 18:17] VITALS: TEMP 98.7
[2025-03-08 18:18] VITALS: O2SAT 100
[2025-03-08 18:20] VITALS: BP 122/74
[2025-03-09 07:44] LABS: Differential Total Cells Count 100; Eosinophils 4 % (0-3); Lymphocytes 2 % (15-42); Monocytes 10 % (0-10); Nucleated Red Blood Cells 12 /100WBC; Polychromasia 2+; Segmented Neutrophils 84 % (40-80)
[2025-03-09 07:45] LABS: Poikilocytosis 3+
== END 2025-03-08 18:00 | disposition home or self-care (01) ==
LOC: ER 15:27
DX: D57.00 Hb-SS disease with crisis, unspecified (principal)
CPT/HCPCS: 96361; 93005; 85025; 80048; 36415; 83735; 85044; 80076; 84484; 83880; 71045; 96375; 96374; 99285; J1200; J1171 ×3; J2405; J7030